=== PATIENT | female | born 1995 | race Two or more races ===

== ENCOUNTER 2019-01-16 18:35 | Emergency (ER) | payer OTHER ==
[~2019-01-16] VITALS: Ht 162.6 cm; Wt 54.4 kg
[2019-01-16 19:26] VITALS: BP 109/67
== END 2019-01-16 22:48 | disposition left against medical advice (07) ==
LOC: ER 18:48
DX: R51 Headache (principal); Z53.21 Procedure and treatment not carried out due to patient leaving prior to being seen by health care provider
CPT/HCPCS: 81025